=== PATIENT | female | born 1985 | race Caucasian/White ===

== ENCOUNTER 2021-07-08 08:15 | Inpatient (IN) | payer OTHER ==
[2021-07-08] MEDS ORDERED: DINOPROSTONE 10 MG VAGINAL SUPPOSITORY VG ONE (10:00)
[2021-07-08 10:22] VITALS: BMI 25.3
[2021-07-08] MEDS: ELECTROLYTE-148 SOLN 1,000 ML IV SCH (15:30)
[2021-07-08] MEDS ORDERED: OXYTOCIN 30 UNITS in 0.9% NS 30 UNIT/500 ML INFUS.BAG IVPB SCH (20:30)
[2021-07-08] MEDS ORDERED: OXYTOCIN 30 UNITS in 0.9% NS 30 UNIT/500 ML INFUS.BAG IVPB ONE (20:35)
[2021-07-08] MEDS ORDERED: FENTANYL/BUPIVACAINE/NS/PF - PCEA - 50 ML DISP.SYRIN EP ONE (23:17)
[2021-07-08] MEDS ORDERED: BUPIVACAINE HCL/PF 0.25% (2.5MG/ML) 10 ML VIAL ONE (23:20)
[2021-07-08] MEDS ORDERED: FENTANYL/BUPIVACAINE/NS/PF - PCEA - 50 ML DISP.SYRIN EP SCH (23:45)
[2021-07-08] MEDS ORDERED: NALOXONE HCL 0.4 MG/ML VIAL IVPUSH PRN (23:52)
[2021-07-09] MEDS ORDERED: BUPIVACAINE HCL/PF 0.25% (2.5MG/ML) 10 ML VIAL ONE (03:15)
[2021-07-09] MEDS ORDERED: FENTANYL/BUPIVACAINE/NS/PF - PCEA - 50 ML DISP.SYRIN EP ONE (03:32)
[2021-07-09] MEDS ORDERED: OXYTOCIN 20 UNITS in 0.9% NS 20 UNIT/1,000 ML INFUS.BAG IV ONE ×2 (06:03→09:54)
[2021-07-09] MEDS: OXYTOCIN 20 UNITS in 0.9% NS 20 UNIT/1,000 ML INFUS.BAG IV SCH ×2 (06:55→10:00)
[2021-07-09] MEDS ORDERED: METHYLERGONOVINE MALEATE 0.2 MG/1 ML AMP IM PRN (07:25)
[2021-07-09] MEDS ORDERED: BISACODYL 10 MG SUPP.RECT RC PRN (07:25)
[2021-07-09] MEDS ORDERED: WITCH HAZEL 50% (TUCKS) 40 PAD/JAR PAD TP PRN (07:25)
[2021-07-09] MEDS ORDERED: ACETAMINOPHEN 325 MG TABLET (FP) PO PRN (07:25)
[2021-07-09] MEDS ORDERED: oxyCODONE HCL 5 MG TABLET PO PRN (07:25)
[2021-07-09] MEDS ORDERED: BENZOCAINE 20% 57 GM BOTTLE TP PRN (07:25)
[2021-07-09] MEDS ORDERED: BENZOCAINE 28 GM HEMORRHOIDAL OINTMENT TP PRN (07:25)
[2021-07-09] MEDS ORDERED: ACETAMINOPHEN 325 MG TABLET (FP) ONE (10:09)
[2021-07-09 14:28] LABS: BASO % 0.1 % (0-2.0); EOS % 0.1 % (0-4.5); HEMATOCRIT 26.8 % (32.4-45.2); LYMPH % 5.9 % (8-40); MCH 26.2 pg (25.7-33.7); MCHC 33.4 g/dl (32.0-36.0); MEAN CELL VOLUME 78.6 fl (80-96); MEAN PLT VOLUME 8.3 fl (7.5-11.1); MONO % 6.9 % (3.8-10.2); PLATELET COUNT 178 10^3/uL (134-434); RBC 3.41 M/mm3 (3.60-5.2); RDW 15.4 % (11.6-15.6); WHITE BLOOD COUNT 19.4 K/mm3 (4.0-10.0)
[2021-07-09] MEDS: ELECTROLYTE-148 SOLN 1,000 ML IV SCH (17:53)
[2021-07-09] MEDS: IBUPROFEN 600 MG TABLET (FP) PO PRN (20:42)
[2021-07-09] MEDS: SENNOSIDES/DOCUSATE COMBO (SENNA PLUS) TABLET (UD) PO PRN (21:57)
[2021-07-10] MEDS: IBUPROFEN 600 MG TABLET (FP) PO PRN ×4 (00:33→20:26)
[2021-07-10 10:28] LABS: HEMATOCRIT 30.7 % (32.4-45.2); HEMOGLOBIN 10.1 GM/dL (10.7-15.3); MCHC 33.1 g/dl (32.0-36.0); MEAN CELL VOLUME 78.7 fl (80-96); MEAN PLT VOLUME 8.4 fl (7.5-11.1); PLATELET COUNT 287 10^3/uL (134-434); RDW 15.8 % (11.6-15.6); WHITE BLOOD COUNT 20.3 K/mm3 (4.0-10.0)
[2021-07-10 12:38] LABS: ANISOCYTOSIS 1+; MACROCYTOSIS 0; OVALOCYTE 1+
[2021-07-10] MEDS: SENNOSIDES/DOCUSATE COMBO (SENNA PLUS) TABLET (UD) PO PRN (20:27)
[2021-07-10] MEDS ORDERED: SENNOSIDES/DOCUSATE COMBO (SENNA PLUS) TABLET (UD) PO PRN (22:00)
[2021-07-11 08:50] VITALS: BP 102/63; PULSE 110; TEMP 97.8
[2021-07-11] MEDS: IBUPROFEN 600 MG TABLET (FP) PO PRN (09:02)
[2021-07-11 10:18] LABS: HEMATOCRIT 28.3 % (32.4-45.2); HEMOGLOBIN 9.3 GM/dL (10.7-15.3); MCH 25.7 pg (25.7-33.7); MCHC 32.8 g/dl (32.0-36.0); MEAN CELL VOLUME 78.4 fl (80-96); MEAN PLT VOLUME 7.9 fl (7.5-11.1); PLATELET COUNT 264 10^3/uL (134-434); RBC 3.61 M/mm3 (3.60-5.2); WHITE BLOOD COUNT 13.8 K/mm3 (4.0-10.0)
[2021-07-11 11:03] LABS: ANISOCYTOSIS 3+; MACROCYTOSIS 0
== END 2021-07-11 12:15 | disposition home or self-care (01) | DRG 807 ==
LOC: JLDR 08:15 → J3W 07-09 12:45
PROVIDERS: ADMIT Specialist; ATTEND Specialist
PROC: 3E0P7VZ Introduction of Hormone into Female Reproductive, Via Natural or Artificial Opening (ICD-10-PCS; 2021-07-08)
PROC: 3E033VJ Introduction of Other Hormone into Peripheral Vein, Percutaneous Approach (ICD-10-PCS; 2021-07-08)
PROC: 10907ZC Drainage of Amniotic Fluid, Therapeutic from Products of Conception, Via Natural or Artificial Opening (ICD-10-PCS; 2021-07-08)
PROC: 10E0XZZ Delivery of Products of Conception, External Approach (ICD-10-PCS; principal; 2021-07-09)
PROC: 0W8NXZZ Division of Female Perineum, External Approach (ICD-10-PCS; 2021-07-09)
DX: O80 Encounter for full-term uncomplicated delivery (principal); Z37.0 Single live birth; Z3A.40 40 weeks gestation of pregnancy
CPT/HCPCS: 36415; 59409; 85025

== ENCOUNTER 2023-10-17 08:30 | Inpatient (IN) | payer OTHER ==
[2023-10-17] MEDS: ELECTROLYTE-148 SOLN 1,000 ML IV SCH (09:00)
[2023-10-17 09:48] VITALS: BMI 28.3
[2023-10-17] MEDS: OXYTOCIN 30 UNITS in 0.9% NS 30 UNIT/500 ML INFUS.BAG IVPB SCH (10:20)
[2023-10-17 10:21] LABS: BASO % 0.4 % (0-2.0); HEMATOCRIT 36.1 % (32.4-45.2); HEMOGLOBIN 11.2 GM/dL (10.7-15.3); LYMPH % 17.9 % (8-40); MCH 22.2 pg (25.7-33.7); MEAN CELL VOLUME 71.8 fl (80-96); MEAN PLT VOLUME 7.7 fl (7.5-11.1); MONO % 6.2 % (3.8-10.2); NEUT % 74.5 % (42.8-82.8); PLATELET COUNT 296 10^3/uL (134-434); RBC 5.02 M/mm3 (3.60-5.2); RDW 18.1 % (11.6-15.6); WHITE BLOOD COUNT 16.7 K/mm3 (4.0-10.0)
[2023-10-17 10:28] LABS: INR 0.89 (0.83-1.09); PROTHROMBIN TIME (PATIENT) 10.1 SEC (9.7-13.0)
[2023-10-17 10:31] LABS: ACTIVATED PTT 29.8 SECONDS (25.2-36.5)
[2023-10-17 10:45] LABS: POTASSIUM 3.9 mmol/L (3.5-5.1)
[2023-10-17 10:46] LABS: CALCIUM 8.7 mg/dL (8.5-10.1)
[2023-10-17 10:51] LABS: CREATININE 0.4 mg/dL (0.55-1.3)
[2023-10-17] MEDS ORDERED: FENTANYL/BUPIVACAINE/NS/PF - PCEA - 50 ML DISP.SYRIN EP ONE (12:40)
[2023-10-17] MEDS ORDERED: NALOXONE HCL 0.4 MG/ML VIAL IVPUSH PRN (12:47)
[2023-10-17] MEDS ORDERED: BUPIVACAINE HCL/PF 0.25% (2.5MG/ML) 10 ML VIAL ONE (12:51)
[2023-10-17] MEDS ORDERED: FENTANYL CITRATE/PF 50 MCG/ML VIAL ONE (12:51)
[2023-10-17] MEDS: FENTANYL/BUPIVACAINE/NS/PF - PCEA - 50 ML DISP.SYRIN EP SCH (13:05)
[2023-10-17] MEDS ORDERED: OXYTOCIN 20 UNITS in 0.9% NS 20 UNIT/1,000 ML INFUS.BAG IV ONE (14:25)
[2023-10-17] MEDS: OXYTOCIN 20 UNITS in 0.9% NS 20 UNIT/1,000 ML INFUS.BAG IV SCH (15:03)
[2023-10-17 15:20] LABS: HIV INTERPRETATION NEGATIVE (NEGATIVE)
[2023-10-17] MEDS ORDERED: BISACODYL 10 MG SUPP.RECT RC PRN (15:23)
[2023-10-17] MEDS ORDERED: WITCH HAZEL 50% (TUCKS) 40 PAD/JAR PAD TP PRN (15:23)
[2023-10-17] MEDS ORDERED: oxyCODONE HCL 5 MG TABLET PO PRN (15:23)
[2023-10-17] MEDS ORDERED: ACETAMINOPHEN 325 MG TABLET (FP) PO PRN (15:23)
[2023-10-17] MEDS ORDERED: BENZOCAINE 28 GM HEMORRHOIDAL OINTMENT TP PRN (15:23)
[2023-10-17] MEDS: IBUPROFEN 600 MG TABLET (FP) PO PRN (23:19)
[2023-10-17] MEDS: METHYLERGONOVINE MALEATE 0.2 MG/1 ML AMP IM PRN (23:24)
[2023-10-18] MEDS: BENZOCAINE 20% 57 GM BOTTLE TP PRN (06:00)
[2023-10-18 10:21] LABS: BASO % 0.5 % (0-2.0); EOS % 0.9 % (0-4.5); HEMOGLOBIN 9.9 GM/dL (10.7-15.3); LYMPH % 16.1 % (8-40); MCH 22.2 pg (25.7-33.7); MCHC 31.1 g/dl (32.0-36.0); MEAN CELL VOLUME 71.4 fl (80-96); MEAN PLT VOLUME 8.3 fl (7.5-11.1); MONO % 5.7 % (3.8-10.2); NEUT % 76.8 % (42.8-82.8); PLATELET COUNT 300 10^3/uL (134-434); RBC 4.48 M/mm3 (3.60-5.2); RDW 17.4 % (11.6-15.6); WHITE BLOOD COUNT 18.9 K/mm3 (4.0-10.0)
[2023-10-18 13:52] LABS: POC NITRAZINE POS
[2023-10-18] MEDS ORDERED: SENNOSIDES/DOCUSATE COMBO (SENNA PLUS) TABLET (UD) PO PRN (22:00)
[2023-10-18 22:44] VITALS: RESP 18
[2023-10-19 09:15] VITALS: BP 107/73; PULSE 80; TEMP 98
== END 2023-10-19 10:45 | disposition home or self-care (01) | DRG 807 ==
LOC: JLDR 08:30 → J3W 17:34
PROVIDERS: ADMIT Specialist; ATTEND Specialist
PROC: 10E0XZZ Delivery of Products of Conception, External Approach (ICD-10-PCS; principal; 2023-10-17)
PROC: 0W8NXZZ Division of Female Perineum, External Approach (ICD-10-PCS; 2023-10-17)
DX: O80 Encounter for full-term uncomplicated delivery (principal); Z37.0 Single live birth; Z3A.39 39 weeks gestation of pregnancy
CPT/HCPCS: 36415; 59409; 80048; 83986-QW; 85025; 85610; 85730; 86780; 86850; 86900; 86901; 87389